=== PATIENT | female | born 1960 | race Caucasian/White ===

== ENCOUNTER 2018-12-11 11:58 | Emergency (ER) | payer MEDICARE, MEDICAID ==
[~2018-12-11] VITALS: Ht 162.6 cm; Wt 63.5 kg
--- NOTE | 2018-12-11 12:04 | ED General ---
General Stated Complaint: FALL; RIB/HEAD INJ History of Present Illness Date Seen by Provider: Dec 11, 2018 Time Seen by Provider: 12:01 Initial Comments Patient presents emergency department for evaluation of multiple areas of pain status post mechanical fall. 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 She is wheelchair-bound but can try and transition and put some weight on her left leg and her left ankle inverted. She then fell forward into the left and she hit her forehead in addition to her left anterior ribs and left hip and left ankle. She denies any vision changes confusion and difficulty speaking or new weakness numbness or tingling. She says that the left ribs is what hurts her the most. She is in no obvious distress with normal vital signs. Allergies and Home Medications Allergies Coded Allergies: codeine (Verified Allergy, Unknown, 12/11/18) Uncoded Allergies: IVP DYE (Allergy, Unknown, 12/11/18) PENICILLIN (Allergy, Unknown, 12/11/18) Patient Home Medication List Home Medication List Reviewed: Yes Review of Systems Review of Systems Constitutional: no symptoms reported EENTM: no symptoms reported Respiratory: no symptoms reported Cardiovascular: no symptoms reported Gastrointestinal: no symptoms reported Musculoskeletal: joint pain Skin: no symptoms reported Psychiatric/Neurological: Headache All Other Systems Reviewed Negative Unless Noted: Yes Physical Exam Vital Signs Vital Signs - First Documented Capillary Refill : Height, Weight, BMI Height: '" Weight: lbs. oz. kg; BMI Method: General Appearance: No Apparent Distress, WD/WN HEENT: PERRL/EOMI Neck: Normal Inspection, Non Tender Respiratory: Normal Breath Sounds, No Respiratory Distress, Other (left anterior rib pain to palpation with no subcutaneous air palpated) Cardiovascular: Regular Rate, Rhythm, Normal Peripheral Pulses Gastrointestinal: Non Tender, Soft Back: Normal Inspection, No Vertebral Tenderness Extremity: Normal Capillary Refill, Other (left lateral malleolus tenderness to palpation and in addition left hip tenderness to palpation.) Neurologic/Psychiatric: Alert, Oriented x3 Skin: Normal Color, Warm/Dry Progress/Results/Core Measures Suspected Sepsis SIRS Temperature: Pulse: Respiratory Rate: Blood Pressure / Mean: Results/Orders My Orders Orders - JUAN ROWE DO Ct Chest/Abdomen/Pelvis Wo (12/11/18 12:21) Ankle 3 View Left (12/11/18 12:21) Oxycodone/Apap 5/325mg Tablet (Percocet (12/11/18 12:30) Ibuprofen Tablet (Motrin Tablet) (12/11/18 12:30) Ct Head/Cervical Spine Wo (12/11/18 12:21) Medications Given in ED Current Medications Medications Dose Ordered Sig/Leelee Route Start Time Stop Time Status Last Admin Dose Admin Ibuprofen 600 mg ONCE ONCE PO 12/11/18 12:30 12/11/18 12:31 DC 12/11/18 12:33 600 MG Oxycodone/ Acetaminophen 1 tab ONCE ONCE PO 12/11/18 12:30 12/11/18 12:31 DC 12/11/18 12:33 1 TAB Vital Signs/I&O 12/11/18 12/11/18 12/11/18 12/11/18 12:03 12:03 12:33 12:33 Temp 98.6 98.6 98.6 98.6 Pulse 93 93 Resp 16 16 B/P (MAP) 97/56 (70) 97/56 (70) Pulse Ox 97 97 O2 Delivery Room Air Room Air Capillary Refill : Progress Note : Progress Note Patient suffered a mechanical fall several image her head and C-spine chest abdomen pelvis and left ankle and then reassess. She was given Percocet and ibuprofen for pain. Thankfully workup came back negative for no intracranial intrathoracic or intra- abdominal trauma and her left ankle x-ray was negative. It appears that she may have some nondisplaced rib fractures on the left anterior chest where she is hurting. Given she has normal vital signs and her pain is controlled and she is able to take deep breaths without difficulty I see no reason for inpatient observation. I told her this will be quite painful and she needs to take deep to avoid getting a pneumonia. Patient has oxycodone orally for pain but I told her NSAIDs may help her rib pain when anything else and recommended taking 6 her milligrams of ibuprofen every 6 hours. Patient aware and agreeable with plan for discharge and verbalized understanding of the need for short-term follow-up and strict ED return precautions discussed including worsening pain shortness of breath fevers or other general concerns. Departure Impression Primary Impression: Ribs, multiple fractures Qualified Codes: S22.42XA - Multiple fractures of ribs, left side, initial encounter for closed fracture Additional Impressions: CHI (closed head injury) Ankle sprain Contusion, hip Disposition: 01 HOME, SELF-CARE Condition: Stable Departure-Patient Inst. Patient Instructions: Rib Fractures in Adults Add. Discharge Instructions: Take 600mg of ibuprofen every 6 hours for pain. JUAN ROWE DO Dec 11, 2018 12:04
[2018-12-11] MEDS ORDERED: IBUPROFEN 600 MG (MOTRIN) TAB PO ONE (12:30)
[2018-12-11] MEDS ORDERED: oxyCODONE/APAP 5/325MG (PERCOCET 5) TABLET PO ONE (12:30)
--- NOTE | 2018-12-11 13:22 | Diagnostic Imaging Report ---
PROCEDURE: CT head and CT cervical spine without contrast. TECHNIQUE: Multiple contiguous axial images were obtained through the brain and cervical spine without the use of intravenous contrast. Sagittal and coronal reformations through the cervical spine were then performed. Auto Exposure Controls were utilized during the CT exam to meet ALARA standards for radiation dose reduction. INDICATION: Fall with head and neck injury. Left flaccid paralysis from prior stroke and weakness of the left lower extremity. COMPARISON: None. FINDINGS: CT HEAD: The ventricles and cortical sulci are mildly prominent, likely from generalized parenchymal volume loss. There is metal artifact in the bilateral cavernous regions, right greater than left, likely from prior coiling. There is a large area of encephalomalacia in the right frontoparietal region from prior MCA infarction. No acute intracranial hemorrhage is seen. There is no CT evidence of acute territorial ischemia. There is ex vacuo dilatation of the right lateral ventricle. The calvarium appears intact. Visualized paranasal sinuses are clear. CT CERVICAL SPINE: There is straightening of the cervical lordosis without spondylolisthesis. There are moderate degenerative changes at C3-4, C4-5, C5-6, and mild degenerative changes elsewhere. Vertebral body heights are preserved. No acute fracture is seen. Prevertebral soft tissues are unremarkable. No bony fragments or hyperdense fluid collections are seen in the spinal canal. The soft tissues about the cervical spine are otherwise unremarkable. There is mild emphysematous change in the lung apices. IMPRESSION: 1. No acute intracranial hemorrhage or CT evidence of acute territorial ischemia. 2. Sequelae from old right MCA infarct with coiling. 3. Degenerative changes in the cervical spine with no acute fracture seen. Dictated by: Dictated on workstation # [id number]
--- NOTE | 2018-12-11 13:22 | Diagnostic Imaging Report ---
INDICATION: Fall with left ankle pain. AP, oblique, and lateral views of the left ankle are obtained. There is diffuse osteopenia. There is no evidence of acute fracture or acute bony abnormality. IMPRESSION: Osteopenia. No acute fracture visualized. Dictated by: Dictated on workstation # [id number]
--- NOTE | 2018-12-11 13:34 | Diagnostic Imaging Report ---
PROCEDURE: CT chest, abdomen, and pelvis without contrast. TECHNIQUE: Multiple contiguous axial images were obtained through the chest, abdomen, and pelvis without the use of intravenous contrast. Auto Exposure Controls were utilized during the CT exam to meet ALARA standards for radiation dose reduction. INDICATION: Trauma. Fall in shower, chest and abdomen injury. History of left flaccid paralysis from prior stroke and weakness of the left lower extremity. COMPARISON: None. FINDINGS: CT CHEST: The heart is normal in size. There is no pericardial effusion. No mediastinal adenopathy is seen. No axillary adenopathy is seen. There are mild paraseptal emphysematous changes in the lung apices. There is dependent atelectasis. No airspace consolidation is seen. There is no pleural effusion or pneumothorax. No endobronchial lesions are seen. There is mild cortical irregularity at the left anterior second, third, and fourth ribs. No acute displaced fractures are seen. CT ABDOMEN/PELVIS: The liver appears normal. Cholecystectomy clips are noted. The spleen is normal. The pancreas appears normal. The adrenal glands are normal. There is mild stranding about the kidneys bilaterally, likely due to senescent changes. No obstructing calculi are seen. No acute solid organ injury is seen on this noncontrast exam. There are postsurgical changes at the proximal stomach. No bowel obstruction is seen. No free fluid or free air is seen. There is moderate stool in the sigmoid colon. The urinary bladder is mildly distended. There is internal fixation of the proximal left femur. No acute fracture is seen. IMPRESSION: 1. Mild cortical irregularity at the anterior left second through fourth ribs, could represent nondisplaced fractures if this is the area of tenderness. Otherwise, no displaced fractures are seen. 2. No acute thoracic or abdominopelvic abnormalities are seen. Dictated by: Dictated on workstation # [id number]
[2018-12-11 14:06] VITALS: BP 103/60
== END 2018-12-11 14:06 | disposition home or self-care (01) ==
LOC: ER FS 12:00
DX: S09.90XA Unspecified injury of head, initial encounter (principal); S22.42XA Multiple fractures of ribs, left side, initial encounter for closed fracture; S93.402A Sprain of unspecified ligament of left ankle, initial encounter; S70.02XA Contusion of left hip, initial encounter; Z86.73 Personal history of transient ischemic attack (TIA), and cerebral infarction without residual deficits; Z88.5 Allergy status to narcotic agent; Z88.0 Allergy status to penicillin; Z91.041 Radiographic dye allergy status; V00.811A Fall from moving wheelchair (powered), initial encounter
CPT/HCPCS: 70450; 71250; 72125; 73610; 74176

== ENCOUNTER 2019-03-14 13:18 | Emergency (ER) | payer MEDICARE, MEDICAID ==
[~2019-03-14] VITALS: Ht 162 cm; Wt 62.0 kg
--- NOTE | 2019-03-14 14:02 | ED Headache ---
General Chief Complaint: Head/Cervical Problems Stated Complaint: HEADACHE Source: patient Exam Limitations: no limitations History of Present Illness Date Seen by Provider: Mar 14, 2019 Time Seen by Provider: 13:59 Initial Comments Presents with posterior headache this started 1 hour prior to arrival. Patient with a history of cerebral aneurysm with "coils" from 2008. Subsequent left- sided weakness. No new neurologic deficits. Allergies and Home Medications Allergies Coded Allergies: codeine (Verified Allergy, Unknown, 12/11/18) Uncoded Allergies: IVP DYE (Allergy, Unknown, 12/11/18) PENICILLIN (Allergy, Unknown, 12/11/18) Patient Home Medication List Home Medication List Reviewed: Yes Review of Systems Review of Systems Constitutional: see HPI; No chills, No diaphoresis, No dizziness, No fever, No malaise, No weakness Eyes: Denies Blindness, Denies Blurred Vision, Denies Pain, Denies Photophobia Respiratory: no symptoms reported Cardiovascular: no symptoms reported Musculoskeletal: No joint swelling, No muscle pain, No muscle twitching, No muscle weakness; neck pain Skin: no symptoms reported Psychiatric/Neurological: See HPI; Denies Headache; Numbness (chronic left side), Pre-Existing Deficit Past Fbworaz-Qilkbh-Ksqxjd Hx Past Med/Social Hx: Reviewed Nursing Past Med/Soc Hx Patient Social History Type Used: Cigarettes 2nd Hand Smoke Exposure: No Recent Hopitalizations: No Immunizations Up To Date Date of Pneumonia Vaccine: Apr 19, 2018 Seasonal Allergies Seasonal Allergies: No Past Medical History Surgeries: Yes (Gastric bypass, EGD, Colonoscopy, Hip surgery) Bowel Surgery, Tonsillectomy Respiratory: No Cardiac: Yes Aneurysm, High Cholesterol Neurological: 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 oz. 63.712788yz; BMI Method:Stated General Appearance: WD/WN, no apparent distress HEENT: PERRL/EOMI, normal ENT inspection, TMs normal, pharynx normal Neck: non-tender, full range of motion, supple, normal inspection Cardiovascular: regular rate, rhythm, no edema Respiratory: lungs clear Gastrointestinal: normal bowel sounds, non tender Back: normal inspection, no CVA tenderness, no vertebral tenderness Extremities: normal range of motion, non-tender, normal inspection, normal capillary refill Psychiatric: alert, oriented x 3; No depressed affect, No disoriented x 3, No lethargic, No unresponsive Crainal Nerves: normal hearing Motor/Sensory: no motor deficit (nothing new), weak motor strength LUE, weak motor strength LLE Skin: normal color, warm/dry Lymphatic: no adenopathy Progress/Results/Core Measures Results/Orders My Orders Orders - ROSANNA CABAN DO Ct Head Wo (03/14/19 13:56) Acetaminophen Tablet (Tylenol Tablet) (03/14/19 14:45) Medications Given in ED Current Medications Medications Dose Ordered Sig/Leelee Route Start Time Stop Time Status Last Admin Dose Admin Acetaminophen 1,000 mg ONCE ONCE PO 03/14/19 14:45 03/14/19 14:46 DC 03/14/19 14:43 1,000 MG Vital Signs/I&O 03/14/19 03/14/19 13:45 15:18 Temp 36.7 37.0 Pulse 89 86 Resp 18 16 B/P (MAP) 102/66 (78) 114/95 (78) Pulse Ox 98 98 O2 Delivery Room Air Departure Impression Primary Impression: Headache Qualified Codes: R51 - Headache Additional Impression: History of cerebral aneurysm repair Disposition: 01 HOME, SELF-CARE (assisted living care) Condition: Stable Departure-Patient Inst. Referrals: ARNIE BERNARD MD (PCP/Family) Primary Care Physician Patient Instructions: Headache, Adult (DC) ROSANNA CABAN DO Mar 14, 2019 14:02
--- NOTE | 2019-03-14 14:32 | Diagnostic Imaging Report ---
PROCEDURE: CT head without contrast. TECHNIQUE: Multiple contiguous axial images were obtained through the brain without the use of intravenous contrast. Auto Exposure Controls were utilized during the CT exam to meet ALARA standards for radiation dose reduction. INDICATION: Headache. History of stroke. COMPARISON: CT head on 12/11/2018. FINDINGS: Chronic encephalomalacia is seen in the right MCA distribution representing prior infarct. Post-procedure aneurysm coiling is seen in the bilateral ICAs. No evidence of large acute territorial ischemia, mass, or hemorrhage. No midline shift or mass effect. There is ex vacuo dilation of the right lateral ventricle. The calvarium is intact. The visualized paranasal sinuses are clear. IMPRESSION: 1. No hemorrhage or focal intra-axial mass. No CT evidence of large acute territorial ischemia. 2. Stable findings of prior right MCA distribution infarct. Aneurysm coiling is seen in the bilateral ICAs. Dictated by: Dictated on workstation # [id number]
[2019-03-14] MEDS ORDERED: ACETAMINOPHEN 500 MG TAB (TYLENOL) PO ONE (14:45)
[2019-03-14 15:18] VITALS: BP 114/95
== END 2019-03-14 15:15 | disposition home or self-care (01) ==
LOC: EDUNIT# 13:18 → ER FS 13:19
DX: R51 Headache (principal); E78.00 Pure hypercholesterolemia, unspecified; G40.909 Epilepsy, unspecified, not intractable, without status epilepticus; F32.9 Major depressive disorder, single episode, unspecified; K21.9 Gastro-esophageal reflux disease without esophagitis; Z87.442 Personal history of urinary calculi; Z90.710 Acquired absence of both cervix and uterus; Z86.73 Personal history of transient ischemic attack (TIA), and cerebral infarction without residual deficits; Z86.79 Personal history of other diseases of the circulatory system; Z98.890 Other specified postprocedural states; Z88.5 Allergy status to narcotic agent; Z88.0 Allergy status to penicillin; Z91.041 Radiographic dye allergy status; Z90.89 Acquired absence of other organs
CPT/HCPCS: 70450

== ENCOUNTER → 2019-10-15 | Outpatient (CLI) | payer MEDICARE, MEDICAID ==
[2019-10-15 12:22] LABS: BILIRUBIN,URINE NEGATIVE (NEGATIVE); CLARITY,URINE CLEAR; COLOR,URINE YELLOW; GLUCOSE, URINE (UA) TRACE (NEGATIVE); KETONES,URINE TRACE (NEGATIVE); LEUKOCYTE ESTERASE ,URINE TRACE (NEGATIVE); NITRITE,URINE NEGATIVE (NEGATIVE); PH,URINE 5.5 (5-9); PROTEIN,URINE NEGATIVE (NEGATIVE)
[2019-10-15 12:23] LABS: BACTERIA,URINE LARGE /HPF; CALCIUM OXALATE CRYSTALS,UR MODERATE /LPF; SQUAMOUS EPITHELIAL CELL,UR 0-2 /HPF
== END ==
LOC: LAB FS 12:03
PROVIDERS: ATTEND Family Medicine
DX: R30.9 Painful micturition, unspecified (principal)
CPT/HCPCS: 81000; 87077; 87088

== ENCOUNTER → 2020-02-12 | Outpatient (CLI) | payer MEDICAID ==
[2020-02-12 12:29] LABS: BACTERIA,URINE FEW /HPF; BILIRUBIN,URINE NEGATIVE (NEGATIVE); CALCIUM OXALATE CRYSTALS,UR MODERATE /LPF; CLARITY,URINE CLEAR; COLOR,URINE YELLOW; GLUCOSE, URINE (UA) NEGATIVE (NEGATIVE); KETONES,URINE NEGATIVE (NEGATIVE); LEUKOCYTE ESTERASE ,URINE NEGATIVE (NEGATIVE); NITRITE,URINE POSITIVE (NEGATIVE); PH,URINE 6 (5-9); PROTEIN,URINE NEGATIVE (NEGATIVE)
== END ==
LOC: LAB FS 12:08
PROVIDERS: ATTEND Family Medicine
DX: R30.0 Dysuria (principal)
CPT/HCPCS: 81000; 87088

== ENCOUNTER 2020-02-20 08:16 | Emergency (ER) | payer MEDICARE, MEDICAID ==
[~2020-02-20] VITALS: Ht 162 cm; Wt 60.0 kg
--- NOTE | 2020-02-20 08:34 | ED Lower Extremity ---
General Chief Complaint: Lower Extremity Stated Complaint: FALL; LT HIP INJ Source: patient Exam Limitations: no limitations History of Present Illness Date Seen by Provider: Feb 20, 2020 Time Seen by Provider: 08:18 Initial Comments The patient is a pleasant 60-year-old female from longterm brought in by EMS for evaluation of a left hip injury. The patient had a previous stroke and is wheelchair bound and during a transfer today she fell to the floor. Her only complaint is left hip and lower back pain. She appears quite comfortable upon arrival and is moving the hip and her back without any apparent discomfort. She did not hit her head or lose consciousness. She is alert, calm, and appears to be in no distress at this time. Onset: just prior to arrival Severity: moderate Pain/Injury Location: left hip Method of Injury: fell Modifying Factors: Improves With Movement Allergies and Home Medications Allergies Coded Allergies: codeine (Verified Allergy, Unknown, 12/11/18) Uncoded Allergies: IVP DYE (Allergy, Unknown, 12/11/18) PENICILLIN (Allergy, Unknown, 12/11/18) Patient Home Medication List Home Medication List Reviewed: Yes Review of Systems Constitutional: no symptoms reported EENTM: no symptoms reported Respiratory: no symptoms reported Cardiovascular: no symptoms reported Gastrointestinal: no symptoms reported Genitourinary: no symptoms reported Musculoskeletal: back pain, joint pain (left hip) Skin: no symptoms reported Psychiatric/Neurological: No Symptoms Reported All Other Systems Reviewed Negative Unless Noted: Yes Past Mxsfvvz-Hdhmow-Kortxq Hx Past Med/Social Hx: Reviewed Nursing Past Med/Soc Hx Patient Social History Alcohol Use: Denies Use Recreational Drug Use: No Smoking Status: Current Everyday Smoker Type Used: Cigarettes 2nd Hand Smoke Exposure: No Recent Hopitalizations: No Physical Abuse: No Sexual Abuse: No Mistreated: No Fear: No Immunizations Up To Date Date of Pneumonia Vaccine: Apr 19, 2018 Seasonal Allergies Seasonal Allergies: No Past Medical History Surgeries: Yes (Gastric bypass, EGD, Colonoscopy, Hip surgery) Bowel Surgery, Tonsillectomy Respiratory: No Cardiac: Yes Aneurysm, High Cholesterol 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 oz. 63.623974pe; 23.00 BMI Method:Stated General Appearance: WD/WN, no apparent distress HEENT: PERRL/EOMI, normal ENT inspection Neck: non-tender, full range of motion, supple, normal inspection Cardiovascular: regular rate, rhythm, no edema, no murmur Respiratory: lungs clear, normal breath sounds, no respiratory distress, no accessory muscle use Gastrointestinal: normal bowel sounds, non tender, soft Back: normal inspection, no CVA tenderness, vertebral tenderness (L3-5) Hips: bilateral hip non-tender, bilateral hip normal inspection, bilateral hip normal range of motion, bilateral hip no evidence of injury, bilateral hip bone tenderness Legs: bilateral leg non-tender, bilateral leg normal inspection, bilateral leg normal range of motion, bilateral leg no evidence of injury Knees: bilateral knee non-tender, bilateral knee normal inspection, bilateral knee normal range of motion, bilateral knee no evidence of injury Ankles: bilateral ankle non-tender, bilateral ankle normal inspection, bilateral ankle normal range of motion, bilateral ankle no evidence of injury 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 The patient appears comfortable. Advised the patient to follow up with her PCP in the next 2-3 days and to return to the emergency Department immediately for new or worsening symptoms. The patient expresses verbal understanding and agreement with the plan and is stable for discharge. Diagnostic Imaging Diagonstic Imaging: Xray Comments [facility] [place] NAME: JENI BOLES [facility] REC#: [id number] PT STATUS: REG ER : 1960 PHYSICIAN: ASPEN LOPEZ DO ADMIT DATE: 02/20/20/ER FS Draft Date of Exam:02/20/20 PELVIS WITH LEFT HIP 2-3 VIEW INDICATION: Fall and left hip pain. TIME OF EXAM: 9:01 AM AP view of the pelvis and multiple views left hip were obtained. There is generalized demineralization present. There is intramedullary elle and compression screw transfixing the left hip. Left hip appears intact. Femoral acetabular alignment is normal bilaterally. Rami appear to be intact. IMPRESSION: Demineralization. There are postoperative changes to the left hip. No acute bony abnormality is detected. Dictated on workstation # [id number] Dict: 02/20/20919 Trans: 02/20/20921 CV [id number] Interpreted by: MALIHA GORE MD Electronically signed by: Departure Impression Primary Impression: Injury of left hip Additional Impression: Low back pain Disposition: HOME, SELF-CARE Condition: Stable Departure-Patient Inst. Decision time for Depature: 10:21 Referrals: ARNIE BERNARD MD (PCP/Family) Primary Care Physician Patient Instructions: Contusion (DC), Hip Pain (DC), Low Back Pain (DC) Add. Discharge Instructions: Follow-up with your doctor in the next 2-3 days. Take Tylenol or ibuprofen at home for pain relief is needed. Return to the emergency Department immediately for new or worsening symptoms. ASPEN LOPEZ DO Feb 20, 2020 08:34
--- NOTE | 2020-02-20 09:23 | Diagnostic Imaging Report ---
INDICATION: Fall and left hip pain. TIME OF EXAM: 9:01 AM AP view of the pelvis and multiple views left hip were obtained. There is generalized demineralization present. There is intramedullary elle and compression screw transfixing the left hip. Left hip appears intact. Femoral acetabular alignment is normal bilaterally. Rami appear to be intact. IMPRESSION: Demineralization. There are postoperative changes to the left hip. No acute bony abnormality is detected. Dictated by: Dictated on workstation # [id number]
[2020-02-20 10:30] VITALS: BP 132/66
== END 2020-02-20 10:40 | disposition home or self-care (01) ==
LOC: ER FS 08:16 → EDUNIT# 08:16 → ER FS 10:40
DX: S79.812A Other specified injuries of left hip, initial encounter (principal); M54.5 Low back pain; F17.210 Nicotine dependence, cigarettes, uncomplicated; Z88.5 Allergy status to narcotic agent; Z88.0 Allergy status to penicillin; Z91.041 Radiographic dye allergy status; W05.0XXA Fall from non-moving wheelchair, initial encounter
CPT/HCPCS: 72100; 73502

== ENCOUNTER 2020-12-29 07:39 | Emergency (ER) | payer MEDICARE, MEDICAID ==
[~2020-12-29] VITALS: Ht 162.6 cm; Wt 47.2 kg
[2020-12-29 07:40] VITALS: BP 104/63
--- NOTE | 2020-12-29 07:43 | ED Fall/Injury ---
General Stated Complaint: FALL; LT HIP/SHOULDER PAIN History of Present Illness Date Seen by Provider: Dec 29, 2020 Time Seen by Provider: 07:40 Initial Comments 60-year-old female presents with pain in her left hip and her left shoulder. Patient was transferring from the wheelchair in the restroom when she fell. She slightly bumped her head but has no pain or deficit there. She has known deficit in her left arm with inability to move it due to an aneurysm. Patient also has had a previous left hip fracture and repair. Patient complains of pain in the left shoulder along with pain in the left hip. She does have range of motion of her left leg. She has a small superficial abrasion/skin tear on her left hand otherwise denies any other injury. Allergies and Home Medications Allergies Coded Allergies: codeine (Verified Allergy, Unknown, 12/11/18) Uncoded Allergies: IVP DYE (Allergy, Unknown, 12/11/18) PENICILLIN (Allergy, Unknown, 12/11/18) Patient Home Medication List Home Medication List Reviewed: Yes Review of Systems Review of Systems Constitutional: No chills, No fever Eyes: No Symptoms Reported Ears, Nose, Mouth, Throat: no symptoms reported Respiratory: No cough, No short of breath Cardiovascular: No chest pain, No palpitations Gastrointestinal: No abdominal pain, No nausea, No vomiting Genitourinary: no symptoms reported Musculoskeletal: see HPI Skin: see HPI Psychiatric/Neurological: See HPI Past Eusmkic-Qlfsge-Apmwbh Hx Family Medical History Reviewed Nursing Family Hx Physical Exam Vital Signs Vital Signs - First Documented 12/29/20 07:40 Temp 36.3 Pulse 89 Resp 16 B/P (MAP) 104/63 (77) Pulse Ox 96 O2 Delivery Room Air Capillary Refill : Height, Weight, BMI Height: '" Weight: lbs. oz. kg; BMI Method: General Appearance: no apparent distress HEENT: PERRL/EOMI, pharynx normal Neck: full range of motion, supple Cardiovascular: normal peripheral pulses, regular rate, rhythm Respiratory: lungs clear, normal breath sounds Peripheral Pulses: 2+ Radial Pulses (R), 2+ Radial Pulses (L) Gastrointestinal: non tender, soft Back: no vertebral tenderness Extremities: other (Tenderness lateral aspect left shoulder, tenderness to left hip) Neurologic/Psychiatric: alert, normal mood/affect, oriented x 3, other (No acute changes, known left upper extremity deficit) Skin: other (Small abrasion/skin tear left hand) Progress/Results/Core Measures Results/Orders My Orders Orders - NATALIYA BALDERRAMA DO Shoulder 3 View Left (12/29/20 07:43) Pelvis With Left Hip 2-3 View (12/29/20 07:43) Vital Signs/I&O 12/29/20 07:40 Temp 36.3 Pulse 89 Resp 16 B/P (MAP) 104/63 (77) Pulse Ox 96 O2 Delivery Room Air Progress Progress Note : Progress Note Patient with no acute fractures noted on shoulder x-ray. Patient with pubic rami fracture on pelvic x-ray. Patient is already wheelchair bound due to previous deficit from the stroke as well as pain medication. At this time she [facility] since [facility] is supportive with pain management. She can follow-up with orthopedic surgery on outpatient basis or her primary care provider as needed. Patient stable and discharged home Diagnostic Imaging Diagonstic Imaging: Xray Plain Films/CT/US/NM/MRI: other Comments Date of Exam:12/29/20 SHOULDER 3 VIEW LEFT INDICATION: Fall with left shoulder pain. COMPARISON: None available. TECHNIQUE: 3 views left shoulder. FINDINGS: Diffuse osseous demineralization is present which limits assessment for nondisplaced fractures. Allowing for this, there is no displaced fracture. Glenohumeral and acromioclavicular joints are normal alignment. Mild osteoarthritis of both of the glenohumeral and acromioclavicular joints. Subacromial space is preserved. IMPRESSION: 1. No acute displaced fracture or dislocation. 2. Diffuse osseous demineralization limits assessment for nondisplaced fracture. Reviewed: Reviewed by Me, Reviewed/Discussed Diagonstic Imaging: Xray Plain Films/CT/US/NM/MRI: pelvis, hip Comments Date of Exam:12/29/20 PELVIS WITH LEFT HIP 2-3 VIEW INDICATION: Left hip pain after fall. COMPARISON: 02/20/2020. TECHNIQUE: AP pelvis with AP and frog-leg lateral views of the left hip. FINDINGS: Diffuse osseous demineralization is present which limits assessment of nondisplaced fracture. There appears to be some irregularity along the left pubic body and left inferior pubic ramus raising the possibility nondisplaced acute fracture. Left proximal femur gamma nail from fixation of old intertrochanteric fracture. No dislocation of either hip. Moderate osteoarthritis of right hip. IMPRESSION: 1. Probable acute fractures of the left pubic body and inferior pubic ramus. Reviewed: Reviewed by Me, Reviewed/Discussed Departure Impression Primary Impression: Fracture of pubic ramus Qualified Codes: S32.592A - Other specified fracture of left pubis, initial encounter for closed fracture Additional Impressions: Contusion of shoulder, left Qualified Codes: S40.012A - Contusion of left shoulder, initial encounter Fall from wheelchair Qualified Codes: W05.0XXA - Fall from non-moving wheelchair, initial encounter Disposition: HOME, SELF-CARE Condition: Stable Departure-Patient Inst. Patient Instructions: Contusion (DC), Pelvic Fracture (DC) Add. Discharge Instructions: Continue current care with wheelchair and pain medication Follow-up with your primary care provider or orthopedic surgeon later this week for recheck of today's symptoms NATALIYA BALDERRAMA DO Dec 29, 2020 07:43
--- NOTE | 2020-12-29 08:22 | Diagnostic Imaging Report ---
INDICATION: Fall with left shoulder pain. COMPARISON: None available. TECHNIQUE: 3 views left shoulder. FINDINGS: Diffuse osseous demineralization is present which limits assessment for nondisplaced fractures. Allowing for this, there is no displaced fracture. Glenohumeral and acromioclavicular joints are normal alignment. Mild osteoarthritis of both of the glenohumeral and acromioclavicular joints. Subacromial space is preserved. IMPRESSION: 1. No acute displaced fracture or dislocation. 2. Diffuse osseous demineralization limits assessment for nondisplaced fracture. Dictated by: Dictated on workstation # [id number]
--- NOTE | 2020-12-29 08:30 | Diagnostic Imaging Report ---
INDICATION: Left hip pain after fall. COMPARISON: 02/20/2020. TECHNIQUE: AP pelvis with AP and frog-leg lateral views of the left hip. FINDINGS: Diffuse osseous demineralization is present which limits assessment of nondisplaced fracture. There appears to be some irregularity along the left pubic body and left inferior pubic ramus raising the possibility nondisplaced acute fracture. Left proximal femur gamma nail from fixation of old intertrochanteric fracture. No dislocation of either hip. Moderate osteoarthritis of right hip. IMPRESSION: 1. Probable acute fractures of the left pubic body and inferior pubic ramus. Dictated by: Dictated on workstation # [id number]
[2020-12-29] MEDS ORDERED: oxyCODONE/APAP 5/325MG (PERCOCET 5) TABLET PO ONE (09:45)
== END 2020-12-29 09:41 | disposition home or self-care (01) ==
LOC: EDUNIT# 07:39 → ER FS 07:40
DX: S32.592A Other specified fracture of left pubis, initial encounter for closed fracture (principal); S40.012A Contusion of left shoulder, initial encounter; I69.30 Unspecified sequelae of cerebral infarction; Z99.3 Dependence on wheelchair; Z87.81 Personal history of (healed) traumatic fracture; W05.0XXA Fall from non-moving wheelchair, initial encounter; W22.8XXA Striking against or struck by other objects, initial encounter; Y92.89 Other specified places as the place of occurrence of the external cause
CPT/HCPCS: 73030; 73502

== ENCOUNTER 2020-12-31 10:44 | Emergency (ER) | payer MEDICARE, MEDICAID ==
--- NOTE | 2020-12-31 11:09 | ED Upper Extremity ---
General Chief Complaint: Upper Extremity Stated Complaint: RT HIP/LT SHOULDER/BACK PAIN History of Present Illness Date Seen by Provider: Dec 31, 2020 Time Seen by Provider: 11:00 Initial Comments 60-year-old female presents with left shoulder pain. Recently seen on December 29 after a fall with left hip and left shoulder pain and x-rays for the shoulder that were normal, however did have possibility of left pubic and inferior ramus fractures. Patient with complicated past medical history significant for an aneurysm with subsequent left sided debility and now wheelchair bound. Lives in an assisted living setting. This morning her caregiver felt a pop in her left arm when assisting her moving from her chair. Allergies and Home Medications Allergies Coded Allergies: codeine (Verified Allergy, Unknown, 12/11/18) Uncoded Allergies: IVP DYE (Allergy, Unknown, 12/11/18) PENICILLIN (Allergy, Unknown, 12/11/18) Home Medications Hydrocodone/Acetaminophen 1 Each Tablet, 1 EACH PO Q4H Prescribed by: ROSANNA CABAN on 12/31/20 7369 Patient Home Medication List Home Medication List Reviewed: Yes Review of Systems Constitutional: malaise (chronic pain) Respiratory: No cough, No short of breath Cardiovascular: No chest pain, No edema, No palpitations Gastrointestinal: No abdominal pain, No diarrhea, No vomiting Musculoskeletal: back pain, joint pain (left hip and left shoulder), muscle pain Skin: No change in color, No rash Psychiatric/Neurological: Denies Headache; Weakness (baseline left sided weakness) Past Cymzdzw-Xpizli-Bjhnld Hx Patient Social History Tobacco Use?: No Seasonal Allergies Seasonal Allergies: No Past Medical History Surgeries: Yes (Gastric bypass, EGD, Colonoscopy, Hip surgery) Bowel Surgery, Tonsillectomy Respiratory: No Cardiac: Yes Aneurysm, High Cholesterol Neurological: 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, Stroke P[employer] History: Hysterectomy Genitourinary: Yes Kidney Stones Gastrointestinal: Yes Gastroesophageal Reflux Musculoskeletal: Yes (Left Hip fracture, left humerus, ) Fractures Endocrine: No HEENT: No Cancer: No Psychosocial: Yes Depression Integumentary: No Blood Disorders: No Physical Exam Vital Signs Vital Signs - First Documented 12/31/20 12/31/20 10:48 13:35 Temp 36.6 Pulse 99 Resp 18 B/P (MAP) 107/66 (80) Pulse Ox 92 O2 Delivery Room Air O2 Flow Rate 2.00 Capillary Refill : Height, Weight, BMI Height: 5'4.00" Weight: 140lbs. oz. [id number]; 17.00 BMI Method:Stated General Appearance: WD/WN, no apparent distress Neck: non-tender, supple Cardiovascular: regular rate, rhythm, no edema, no JVD Respiratory: chest non-tender, lungs clear, normal breath sounds, no respiratory distress, no accessory muscle use Gastrointestinal: normal bowel sounds, non tender, soft Back: normal inspection, no CVA tenderness, no vertebral tenderness Shoulder: No normal ROM; asymmetry (left shoulder dislocation- anterior), bone tenderness; No deformity; limited ROM, pain, soft tissue tenderness Elbow/Forearm: normal inspection, non-tender, no evidence of injury Wrist: Yes normal inspection, Yes non-tender, Yes no evidence of injury Hand: normal inspection, non-tender, no evidence of injury Neurologic/Tendon: normal sensation, responds to pain Neurologic/Psychiatric: alert, normal mood/affect Skin: normal color, warm/dry Procedures/Interventions Patient Education: Explained Benefits, Explained Risks, Pt. Ack. Understanding Agreement on procedure with pt: Yes Breath Sounds per Auscultation: Clear Heart Sounds per Auscultation: Regular Airway Exam: Mouth opens >2 fingers, Visulation of Uvula Total Time spent in CS 2 easy reduction w minimal sedation. severe laxity of shoulder due to muscle wasting / atrophy. Splinting and Joint Reduction : Pre-Proc Neuro Vasc Exam: normal Post-Proc Neuro Vasc Exam: normal Joint Reduction Site: shoulder (L) Pre-Procedure NV Exam: Yes Arm Sling: Large Progress/Results/Core Measures Results/Orders My Orders Orders - ROSANNA CABAN DO Shoulder 3 View Left (12/31/20 11:03) Fentanyl Inj (Sublimaze Injection) (12/31/20 13:30) Midazolam Injection (Versed Injection) (12/31/20 13:30) Fentanyl Inj (Sublimaze Injection) (12/31/20 16:30) Midazolam Injection (Versed Injection) (12/31/20 16:30) Medications Given in ED Current Medications Medications Dose Ordered Sig/Leelee Route Start Time Stop Time Status Last Admin Dose Admin Fentanyl Citrate 25 mcg ONCE ONCE IVP 12/31/20 16:30 12/31/20 16:31 DC 12/31/20 13:42 25 MCG Midazolam HCl 1 mg ONCE ONCE IVP 12/31/20 16:30 12/31/20 16:31 DC 12/31/20 13:43 1 MG Vital Signs/I&O 12/31/20 12/31/20 12/31/20 12/31/20 10:48 13:35 13:37 13:40 Temp 36.6 36.6 Pulse 99 101 101 Resp 18 B/P (MAP) 107/66 (80) 132/98 103/53 Pulse Ox 92 96 96 O2 Delivery Room Air Nasal Cannula Room Air Nasal Cannula O2 Flow Rate 2.00 2.00 2.00 12/31/20 12/31/20 12/31/20 12/31/20 13:45 13:50 13:55 14:00 Pulse 102 104 106 105 Resp 15 13 16 17 15 15 16 17 B/P (MAP) 105/60 108/69 96/59 101/60 Pulse Ox 92 92 96 95 O2 Delivery Nasal Cannula Nasal Cannula O2 Flow Rate 2.00 2.00 12/31/20 12/31/20 12/31/20 14:05 14:20 14:20 Temp 36.4 36.4 Pulse 108 101 101 Resp 18 18 18 18 18 B/P (MAP) 105/76 106/71 Pulse Ox 96 94 94 O2 Delivery Room Air Progress Progress Note : Progress Note called Dr lopez @ 4500 for consultation regarding shoulder dislocation w proximal humeral fx.....he advises I reduce the dislocation and put her in a sling. Diagnostic Imaging Diagonstic Imaging: Xray Comments Date of Exam:12/31/20 SHOULDER 3 VIEW LEFT Indication: Lifting injury. Left shoulder pain 4 views of left shoulder shows anterior/inferior dislocation of the glenohumeral joint no fracture of the humeral head seen. There is an oblique fracture of the proximal shaft of the humerus which could be evaluated better with dedicated humeral films. AC joint is intact. IMPRESSION: There is a change from 12/29/2020 study there is now inferior dislocation as well as a fracture of the shaft of the humerus. Dictated by: Dictated on workstation # [id number] Dict: 12/31/20 1135 Trans: 12/31/20 1141 [facility] [id number] Interpreted by: ASPEN LYNN MD Electronically signed by: ASPEN LYNN MD 12/31/20 1141 Departure Impression Primary Impression: Dislocation of shoulder, left, closed Qualified Codes: S43.005A - Unspecified dislocation of left shoulder joint, initial encounter Additional Impression: Proximal humeral fracture Qualified Codes: S42.292A - Other displaced fracture of upper end of left humerus, initial encounter for closed fracture Disposition: 01 HOME, SELF-CARE Condition: Improved Departure-Patient Inst. Decision time for Depature: 13:47 Referrals: ARNIE BERNARD MD (PCP/Family) Primary Care Physician Patient Instructions: How to Use a Shoulder Sling, Shoulder Dislocation (DC), Upper Arm Fracture ED Add. Discharge Instructions: See Dr Bernard for follow up care in 1 week. All discharge instructions reviewed with patient and/or family. Voiced understanding. Scripts Hydrocodone/Acetaminophen (Hydrocodone-Acetamin 5-325 mg) 1 Each Tablet 1 EACH PO Q4H for Abdominal Pain, #20 TAB Prov: ROSANNA CABAN DO 12/31/20 ROSANNA CABAN DO Dec 31, 2020 11:09
--- NOTE | 2020-12-31 11:40 | Diagnostic Imaging Report ---
Indication: Lifting injury. Left shoulder pain 4 views of left shoulder shows anterior/inferior dislocation of the glenohumeral joint no fracture of the humeral head seen. There is an oblique fracture of the proximal shaft of the humerus which could be evaluated better with dedicated humeral films. AC joint is intact. IMPRESSION: There is a change from 12/29/2020 study there is now inferior dislocation as well as a fracture of the shaft of the humerus. Dictated by: Dictated on workstation # [id number]
[2020-12-31] MEDS ORDERED: MIDAZOLAM 5 MG/5 ML (VERSED) VIAL IVP ONE (13:30)
[2020-12-31] MEDS ORDERED: fentaNYL INJ 100 MCG/2 ML AMP IVP ONE ×2 (13:30→16:30)
[2020-12-31] MEDS ORDERED: ACHD5005 PO (13:56)
[2020-12-31 14:20] VITALS: BP 106/71
[2020-12-31] MEDS ORDERED: MIDAZOLAM 2 MG/2 ML (VERSED) VIAL IVP ONE (16:30)
== END 2020-12-31 14:20 | disposition home or self-care (01) ==
LOC: EDUNIT# 10:44 → ER FS 10:46
DX: S42.332A Displaced oblique fracture of shaft of humerus, left arm, initial encounter for closed fracture (principal); S43.005A Unspecified dislocation of left shoulder joint, initial encounter; Z86.73 Personal history of transient ischemic attack (TIA), and cerebral infarction without residual deficits; W19.XXXA Unspecified fall, initial encounter
CPT/HCPCS: 73030

== ENCOUNTER 2021-01-05 10:28 | Emergency (ER) | payer MEDICARE, MEDICAID ==
[~2021-01-05 10:28] MED LIST: ACHD5005 PO
[2021-01-05 11:04] LABS: BASOPHILS % (AUTO) 1 % (0-10); EOSINOPHILS % (AUTO) 1 % (0-10); HEMATOCRIT 35 % (35-52); HEMOGLOBIN 11.2 G/DL (11.5-16.0); LYMPHOCYTES % (AUTO) 17 % (12-44); MEAN CORPUSCULAR HEMOGLOBIN 31 PG (25-34); MEAN CORPUSCULAR HGB CONC 32 G/DL (32-36); MEAN CORPUSCULAR VOLUME 98 FL (80-99); MEAN PLATELET VOLUME 9.5 FL (7.4-10.4); MONOCYTES % (AUTO) 8 % (0-12); NEUTROPHILS # (AUTO) 6.2 X 10^3 (1.8-7.8); NEUTROPHILS % (AUTO) 74 % (42-75); PLATELET COUNT 418 10^3/uL (130-400); WHITE BLOOD COUNT 8.4 10^3/uL (4.3-11.0)
[2021-01-05 11:05] LABS: BASOPHILS # (AUTO) 0.1 10^3/uL (0.0-0.1); EOSINOPHILS # (AUTO) 0.1 10^3/uL (0.0-0.3); LYMPHOCYTES # (AUTO) 1.4 X 10^3 (1.0-4.0); MONOCYTES # (AUTO) 0.7 X 10^3 (0.0-1.0)
--- NOTE | 2021-01-05 11:06 | Diagnostic Imaging Report ---
CLINICAL INDICATION: Patient with chest pain. EXAM: Portable chest x-ray upright view. COMPARISONS: None. FINDINGS: Lungs/pleura: Lungs are clear. There is no pneumothorax. There is no pleural effusion. Mediastinum: Unremarkable. Pulmonary vasculature: Unremarkable. Heart: Unremarkable. Bones/extrathoracic soft tissue: There is right curvature of the lumbar spine. IMPRESSION: There is no radiographic evidence of acute cardiopulmonary process. Dictated by: Dictated on workstation # [id number]
[2021-01-05 11:17] LABS: ALKALINE PHOSPHATASE 131 U/L (40-136); BILIRUBIN,TOTAL 0.3 MG/DL (0.1-1.0); BUN/CREATININE RATIO 28; CALCIUM 9.1 MG/DL (8.5-10.1); CARBON DIOXIDE 23 MMOL/L (21-32); CHLORIDE 105 MMOL/L (98-107); CREATININE SERUM 0.79 MG/DL (0.60-1.30); GFR ESTIMATED 74; GLUCOSE 129 MG/DL (70-105); POTASSIUM 4.1 MMOL/L (3.6-5.0); SODIUM 138 MMOL/L (135-145)
[2021-01-05 11:18] LABS: ALANINE AMINOTRANSFERASE 13 U/L (0-55); ALBUMIN 3.3 GM/DL (3.2-4.5); TOTAL PROTEIN 6.1 GM/DL (6.4-8.2)
--- NOTE | 2021-01-05 11:46 | ED Chest Pain ---
General Chief Complaint: Chest Pain Stated Complaint: CHEST PAIN Nursing Triage Note: CHEST PAIN THAT STARTED PRIOR TO ARRIVAL. THE NURSE AT THE ID STATED THAT THE PT SAYS SHE JUST WANT TO BE ADMITTED AND BE ON A "PAIN MEDICINE DRIP". SHE HAS CHRONIC PAIN AND A NEW LEFT SHOULDER FX FROM THE PAST WEEK. 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 Pain is mod erate to severe nonradiating nonmigratory. It has since resolved. Patient denies nausea shortness of breath nausea vomiting or sweats. Denies abdominal pain back pain. Denies extremity weakness or loss of sensation. No headache or neck pain. No other acute symptoms or complaints. No history of coronary disease. Timing/Duration: 1 hour Severity/Quality: moderate, tearing Location: substernal, other Radiation: no radiation, other Activities at Onset: none, other Prior CP/Workup: no prior chest pain, other Modifying Factors: improves with other Associated Symptoms: shortness of breath Allergies and Home Medications Allergies Coded Allergies: Iodinated Contrast Media (Unverified Allergy, Unknown, 01/05/21) Penicillins (Unverified Allergy, Unknown, 01/05/21) codeine (Verified Allergy, Unknown, 12/11/18) Home Medications Hydrocodone/Acetaminophen 1 Each Tablet, 1 EACH PO Q4H Prescribed by: ROSANNA CABAN on 12/31/20 1357 Patient Home Medication List Home Medication List Reviewed: Yes Review of Systems Review of Systems Constitutional: see HPI EENTM: See HPI Respiratory: See HPI Cardiovascular: See HPI Gastrointestinal: See HPI Genitourinary: See HPI Musculoskeletal: see HPI Skin: see HPI Psychiatric/Neurological: See HPI Endocrine: See HPI Hematologic/Lymphatic: See HPI All Other Systems Reviewed Negative Unless Noted: Yes Past Uhohhzj-Jrvmll-Yglqjk Hx Patient Social History Tobacco Use?: No Use of E-Cig and/or Vaping dev: No Substance use?: No Alcohol Use?: No Pt feels they are or have been: No Seasonal Allergies Seasonal Allergies: No Past Medical History Surgery/Hospitalization HX: L shoulder surgery Surgeries: Yes (Gastric bypass, EGD, Colonoscopy, Hip surgery) Bowel Surgery, Tonsillectomy Respiratory: No Cardiac: Yes Aneurysm, High Cholesterol 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 oz. 63.598411dg; 17.00 BMI Method:Stated General Appearance: No Apparent Distress, WD/WN, Anxious, Moderate Distress HEENT: PERRL/EOMI, Normal ENT Inspection, Pharynx Normal, Other Neck: Normal Inspection, Non Tender, Supple, Other Respiratory: Lungs Clear, Normal Breath Sounds, Other Cardiovascular: Regular Rate, Rhythm, No Edema (Left hemiparalysis), Other Gastrointestinal: Non Tender, Soft Neurologic/Psychiatric: Alert, Motor Weakness Focused Exam Sepsis Stage: Ruled Out Procedures/Interventions Patient Education: Explained Benefits, Explained Risks, Pt. Ack. Understanding Breath Sounds per Auscultation: Clear Heart Sounds per Auscultation: Regular Airway Exam: Mouth opens >2 fingers, Visulation of Uvula Progress/Results/Core Measures Results/Orders Lab Results Laboratory Tests Test 01/05/21 10:42 01/05/21 11:24 01/05/21 13:23 Range/Units White Blood Count 8.4 4.3-11.0 10^3/uL Red Blood Count 3.58 L 4.35-5.85 10^6/uL Hemoglobin 11.2 L 11.5-16.0 G/DL Hematocrit 35 35-52 % Mean Corpuscular Volume 98 80-99 FL Mean Corpuscular Hemoglobin 31 25-34 PG Mean Corpuscular Hemoglobin Concent 32 32-36 G/DL Red Cell Distribution Width 12.1 10.0-14.5 % Platelet Count 418 H 130-400 10^3/uL Mean Platelet Volume 9.5 7.4-10.4 FL Immature Granulocyte % (Auto) 0 % Neutrophils (%) (Auto) 74 42-75 % Lymphocytes (%) (Auto) 17 12-44 % Monocytes (%) (Auto) 8 0-12 % Eosinophils (%) (Auto) 1 0-10 % Basophils (%) (Auto) 1 0-10 % Neutrophils # (Auto) 6.2 1.8-7.8 X 10^3 Lymphocytes # (Auto) 1.4 1.0-4.0 X 10^3 Monocytes # (Auto) 0.7 0.0-1.0 X 10^3 Eosinophils # (Auto) 0.1 0.0-0.3 10^3/uL Basophils # (Auto) 0.1 0.0-0.1 10^3/uL Immature Granulocyte # (Auto) 0.0 0.0-0.1 10^3/uL D-Dimer 7.12 H 0.00-0.49 UG/ML Sodium Level 138 135-145 MMOL/L Potassium Level 4.1 3.6-5.0 MMOL/L Chloride Level 105 98-107 MMOL/L Carbon Dioxide Level 23 21-32 MMOL/L Anion Gap 10 5-14 MMOL/L Blood Urea Nitrogen 22 H 7-18 MG/DL Creatinine 0.79 0.60-1.30 MG/DL Estimat Glomerular Filtration Rate 74 BUN/Creatinine Ratio 28 Glucose Level 129 H 70-105 MG/DL Calcium Level 9.1 8.5-10.1 MG/DL Corrected Calcium 9.7 8.5-10.1 MG/DL Total Bilirubin 0.3 0.1-1.0 MG/DL Aspartate Amino Transf (AST/SGOT) 18 5-34 U/L Alanine Aminotransferase (ALT/SGPT) 13 0-55 U/L Alkaline Phosphatase 131 40-136 U/L Troponin I < 0.30 < 0.30 <0.30 NG/ML Total Protein 6.1 L 6.4-8.2 GM/DL Albumin 3.3 3.2-4.5 GM/DL Urine Color DARK YELLOW Urine Clarity CLOUDY H Urine pH 6.0 5-9 Urine Specific [place] >=1.030 1.016-1.022 Urine Protein NEGATIVE NEGATIVE Urine Glucose (UA) NEGATIVE NEGATIVE Urine Ketones 1+ H NEGATIVE Urine Nitrite NEGATIVE NEGATIVE Urine Bilirubin 1+ H NEGATIVE Urine Urobilinogen 1.0 < = 1.0 MG/DL Urine Leukocyte Esterase NEGATIVE NEGATIVE Urine RBC (Auto) NEGATIVE NEGATIVE Urine RBC 2-5 H /HPF Urine WBC 10-25 H /HPF Urine Squamous Epithelial Cells 2-5 /HPF Urine Crystals PRESENT H /LPF Urine Calcium Oxalate Crystals MODERATE H /LPF Urine Bacteria LARGE H /HPF Urine Casts NONE /LPF Urine Mucus NEGATIVE /LPF Urine Culture Indicated YES My Orders Orders - YAN CASAS DO Cbc With Automated Diff (01/05/21 10:45) Comprehensive Metabolic Panel (01/05/21 10:45) Troponin I Fs (01/05/21 10:45) Ekg-Prn For Chest Pain Or Rhyt (01/05/21 10:45) Chest 1 View Ap/Pa Only (01/05/21 10:45) Fibrin Degradation Products (01/05/21 11:15) Urinalysis (01/05/21 11:30) Ct Angio Chst/Abd/Pelv W Wo (01/05/21 11:42) Urine Culture (01/05/21 11:24) Iohexol Injection (Omnipaque 350 Mg/Ml 1 (01/05/21 12:00) Received Contrast (Hold Metformin- Contr (01/05/21 12:00) Sodium Chloride Flush (Catheter Flush Sy (01/05/21 12:00) Ns (Ivpb) (Sodium Chloride 0.9% Ivpb Bag (01/05/21 12:00) Troponin I Fs (01/05/21 13:16) Medications Given in ED Current Medications Medications Dose Ordered Sig/Leelee Route Start Time Stop Time Status Last Admin Dose Admin Iohexol 100 ml ONCE ONCE IV 01/05/21 12:00 01/05/21 12:09 DC 01/05/21 12:23 100 ML Sodium Chloride 10 ml NEEDED PRN IV 01/05/21 12:00 01/05/21 12:23 10 ML Sodium Chloride 100 ml ONCE ONCE IV 01/05/21 12:00 01/05/21 12:09 DC 01/05/21 12:23 100 ML Vital Signs/I&O 01/05/21 01/05/21 10:30 10:30 Temp 36.7 Pulse 95 Resp 14 B/P (MAP) 114/65 (81) Pulse Ox 98 O2 Delivery Room Air Room Air Blood Pressure Mean: 81 Departure Communication (Admissions) EKG: Sinus rhythm, right 99, no acute ST-T wave changes, normal OK, QRS, QTc intervals Chest x-ray: No acute cardiopulmonary disease. CTA chest: No dissection, or acute coronary disease. Atypical chest pain nonexertional resolved prior to ED arrival. Negative EKG and troponin x2. Significant elevation in D-dimer. Negative CTA for dissection/pulmonary embolus. No findings of Covid disease on CT . Recommendations are for watchful waiting and following up with PCP. Impression Primary Impression: Chest pain Disposition: 01 HOME, SELF-CARE Condition: Stable Departure-Patient Inst. Decision time for Depature: 14:33 Referrals: ARNIE BERNARD MD (PCP/Family) Primary Care Physician Patient Instructions: Chest Pain Add. Discharge Instructions: You were evaluated in the ED for chest pain. EKG lab and imaging studies were performed and are nondiagnostic. The exact cause of your symptoms has not been determined. Please follow-up with your PCP in 2 to 3 days for reevaluation. Return to the ED if new or worsening symptoms All discharge instructions reviewed with patient and/or family. Voiced understanding. YAN CASAS DO Jan 05, 2021 11:46
[2021-01-05 11:48] LABS: CLARITY,URINE CLOUDY; COLOR,URINE DARK YELLOW; GLUCOSE, URINE (UA) NEGATIVE (NEGATIVE); KETONES,URINE 1+ (NEGATIVE); PROTEIN,URINE NEGATIVE (NEGATIVE)
[2021-01-05 11:49] LABS: BACTERIA,URINE LARGE /HPF; BILIRUBIN,URINE 1+ (NEGATIVE); CALCIUM OXALATE CRYSTALS,UR MODERATE /LPF; LEUKOCYTE ESTERASE ,URINE NEGATIVE (NEGATIVE); NITRITE,URINE NEGATIVE (NEGATIVE)
[2021-01-05] MEDS ORDERED: NS 100 ML (IVPB) BAG IV ONE (12:00)
[2021-01-05] MEDS ORDERED: CATHETER FLUSH 10 ML SYR IV PRN (12:00)
[2021-01-05] MEDS ORDERED: HOLD METFORMIN - RECEIVED CONTRAST 20 ML VIAL IV SCH (12:00)
[2021-01-05] MEDS ORDERED: IOHEXOL 350 MG/ML 100 ML (OMNIPAQUE 350) VIAL IV ONE (12:00)
--- NOTE | 2021-01-05 13:04 | Diagnostic Imaging Report ---
INDICATION: Chest pain and abdominal pain, clinical suspicion for dissection. TECHNIQUE: Non contrast-enhanced helical images were obtained through the chest, abdomen and pelvis. Contrast-enhanced thin section helical images were obtained through the chest, abdomen and pelvis with intravenous contrast timed for the optimal opacification of the arterial structures per departmental CTA protocol. Post-processing, retro reconstructions and interpretation of angiographic images of the vessels was performed. 3D MIP reconstructions were performed and reviewed. Auto Exposure Controls were utilized during the CT exam to meet ALARA standards for radiation dose reduction. Comparison made to previous study of 12/11/2018, without contrast. CTA chest findings: There are no enlarged mediastinal or hilar nodes. There are no enlarged axillary nodes or chest wall lesions. There is no pleural or pericardial fluid. Lung parenchymal windows demonstrate no pulmonary parenchymal infiltrates or masses. There is some linear scarring or atelectasis in the right lung base. The thoracic aorta shows no evidence of aneurysm or dissection. The great vessel origins are patent and without stenosis. The pulmonary parenchymal vessels are well-opacified with no CT evidence of pulmonary emboli. CT abdomen and pelvis findings: The liver shows no focal lesion. Patient has had prior cholecystectomy. Spleen, adrenals, and pancreas are normal. Kidneys bilaterally show no focal lesion. There is slight atrophy of the left kidney relative to the right. There is no retroperitoneal mass or adenopathy. There is no ascites or abnormal fluid collection. Visualized bowel loops including the appendix appear unremarkable. There are old healed bilateral inferior pubic ramus fractures. There is osteopenia with diffuse degenerative change of the lumbar spine. CTA images demonstrate the abdominal aorta to be patent and without evidence of dissection. 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 There is no definite plaque formation. The renal arteries are patent on both sides and without stenosis. The infrarenal aorta is normal in caliber. The inferior mesenteric artery is patent. The common iliac arteries and internal iliac arteries and external iliac arteries are patent. The common femoral arteries are patent. IMPRESSION: CTA chest shows no evidence of aortic dissection or aneurysm or pulmonary emboli. There is some minimal linear scarring or atelectasis in left lung base. There is no acute abnormality in the chest. CT abdomen and pelvis demonstrates no evidence of abdominal aortic aneurysm or dissection. There is no significant plaque formation. 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 There is no acute abnormality visualized in the abdomen or pelvis. Dictated by: Dictated on workstation # [id number]
[2021-01-05 14:28] VITALS: BP 116/68
== END 2021-01-05 14:28 | disposition home or self-care (01) ==
LOC: EDUNIT# 10:28 → ER FS 10:29
DX: R07.2 Precordial pain (principal); Z88.5 Allergy status to narcotic agent
CPT/HCPCS: 36415; 71045; 71275; 74174; 80053; 81000; 84484; 85025; 85379; 87077; 87088; 87186; 93005

== ENCOUNTER 2021-01-13 07:38 | Emergency (ER) | payer MEDICARE, MEDICAID ==
[~2021-01-13] VITALS: Ht 154 cm; Wt 65.0 kg
--- NOTE | 2021-01-13 08:04 | ED GU-Female ---
General Stated Complaint: SUPRAPUBIC PAIN Source: patient Exam Limitations: no limitations History of Present Illness Date Seen by Provider: Jan 13, 2021 Time Seen by Provider: 07:47 Initial Comments Here with report of suprapubic pain that started this morning. Patient states it feels like when she has a kidney stone. She is quite debilitated and is [facility]. She needs assistance for all transfers. Denies nausea, vomiting or fevers. Does have history of seizure disorder and previous stroke. Allergies and Home Medications Allergies Coded Allergies: Iodinated Contrast Media (Unverified Allergy, Unknown, 01/05/21) Penicillins (Unverified Allergy, Unknown, 01/05/21) codeine (Verified Allergy, Unknown, 12/11/18) Home Medications Hydrocodone/Acetaminophen 1 Each Tablet, 1 EACH PO Q4H Prescribed by: ROSANNA CABAN on 12/31/20 4430 Patient Home Medication List Home Medication List Reviewed: Yes Review of Systems Review of Systems Constitutional: No chills, No fever Respiratory: no symptoms reported Cardiovascular: no symptoms reported Gastrointestinal: No nausea, No vomiting Genitourinary: dysuria, frequency, pain : No Musculoskeletal: joint pain (History of fractures and contusions secondary to falls), muscle pain Skin: No change in color; lesions (Top of left hand) Psychiatric/Neurological: Pre-Existing Deficit, Weakness (Chronic) All Other Systemes Reviewed Negative Unless Noted: Yes Past Fqpaoxp-Gapbsz-Pqcmrr Hx Patient Social History Tobacco Use?: No Substance use?: No Alcohol Use?: No Seasonal Allergies Seasonal Allergies: No Past Medical History Surgery/Hospitalization HX: L shoulder surgery Surgeries: Yes (Gastric bypass, EGD, Colonoscopy, Hip surgery) Bowel Surgery, Tonsillectomy Respiratory: No Cardiac: Yes Aneurysm, High Cholesterol Neurological: 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, 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 oz. [id number]; 17.00 BMI Method:Stated General Appearance: no apparent distress, thin Cardiovascular: regular rate, rhythm, no murmur Respiratory: lungs clear, normal breath sounds Gastrointestinal: soft; No guarding, No rebound; tenderness (Mild suprapubic) Back: normal inspection, no CVA tenderness, no vertebral tenderness Neurologic/Psychiatric: alert, normal mood/affect, motor weakness (Chronic secondary to stroke) Skin: warm/dry, other (2 x 2 centimeter lesion to the top of the left hand that she is concerned about. It seems to be healing well but she does admit to picking. We will cover with light antibiotic ointment and Band-Aid to protect wound.) Procedures/Interventions Patient Education: Explained Benefits, Explained Risks, Pt. Ack. Understanding Breath Sounds per Auscultation: Clear Heart Sounds per Auscultation: Regular Airway Exam: Mouth opens >2 fingers, Visulation of Uvula Progress/Results/Core Measures Suspected Sepsis SIRS Temperature: Pulse: Respiratory Rate: Blood Pressure / Mean: Results/Orders Lab Results Laboratory Tests Test 01/13/21 08:05 Range/Units Urine Color YELLOW Urine Clarity SL CLOUDY Urine pH 5.0 5-9 Urine Specific [place] 1.020 1.016-1.022 Urine Protein NEGATIVE NEGATIVE Urine Glucose (UA) NEGATIVE NEGATIVE Urine Ketones 1+ H NEGATIVE Urine Nitrite POSITIVE H NEGATIVE Urine Bilirubin NEGATIVE NEGATIVE Urine Urobilinogen 1.0 < = 1.0 MG/DL Urine Leukocyte Esterase TRACE H NEGATIVE Urine RBC (Auto) NEGATIVE NEGATIVE Urine RBC RARE /HPF Urine WBC 5-10 H /HPF Urine Squamous Epithelial Cells RARE /HPF Urine Crystals NONE /LPF Urine Bacteria LARGE H /HPF Urine Casts PRESENT /LPF Urine Hyaline Casts RARE /LPF Urine Mucus SMALL H /LPF Urine Culture Indicated YES My Orders Orders - LILI DE OLIVEIRA MD Ua Culture If Indicated (01/13/21 07:57) Straight Cath For Spec.-Adult (01/13/21 07:57) Urine Culture (01/13/21 08:05) Ceftriaxone (Rocephin) (01/13/21 08:45) Lidocaine 1% Inj 20 Ml (Xylocaine 1% Inj (01/13/21 08:45) Vital Signs/I&O 01/13/21 07:45 Temp 35.9 Pulse 112 Resp 18 B/P (MAP) 107/64 (78) Pulse Ox 97 O2 Delivery Room Air Capillary Refill : Progress Note : Progress Note Seen and evaluated. We will get straight cath UA. Patient is worried about kidney stones. We will evaluate further after UA resulted. Monitor patient. 0838: UA does show urinary tract infection and is nitrite positive. We have culture from a few days ago that shows drug-resistant E. coli but sensitive to cephalosporins. Patient has penicillin allergy from a long time ago but does not have any history of cephalosporin allergy. Rocephin 1 g IM ordered. We will continue outpatient cefdinir for a few days. Discharged home with return precautions. Patient verbalized understanding of instructions and agreement with plan. Departure Impression Primary Impression: Urinary tract infection Qualified Codes: N30.00 - Acute cystitis without hematuria Disposition: HOME, SELF-CARE Condition: Stable Departure-Patient Inst. Decision time for Depature: 08:40 Referrals: ARNIE BERNARD MD (PCP/Family) Primary Care Physician Patient Instructions: Urinary Tract Infection, Adult (DC) Add. Discharge Instructions: Take medications as directed. Continue home medications as previously prescribed. Follow-up with your doctor this week for recheck and further evaluation as needed. Return for worse pain, weakness, fever, vomiting or other concerns as needed. Drink plenty of fluids and continue your normal diet. Scripts Cefdinir (Cefdinir) 300 Mg Capsule 300 MG PO BID for 5 Days, #10 CAP 0 Refills Prov: LILI DE OLIVEIRA MD 01/13/21 LILI DE OLIVEIRA MD Jan 13, 2021 08:04
[2021-01-13 08:14] LABS: BILIRUBIN,URINE NEGATIVE (NEGATIVE); CLARITY,URINE SL CLOUDY; COLOR,URINE YELLOW; GLUCOSE, URINE (UA) NEGATIVE (NEGATIVE); KETONES,URINE 1+ (NEGATIVE); LEUKOCYTE ESTERASE ,URINE TRACE (NEGATIVE); NITRITE,URINE POSITIVE (NEGATIVE); PROTEIN,URINE NEGATIVE (NEGATIVE)
[2021-01-13 08:23] LABS: BACTERIA,URINE LARGE /HPF; RBC,URINE RARE /HPF
[2021-01-13 08:24] LABS: HYALINE CASTS, URINE RARE /LPF; SQUAMOUS EPITHELIAL CELL,UR RARE /HPF
[2021-01-13] MEDS ORDERED: CEFD300C3 PO (08:41)
[2021-01-13] MEDS ORDERED: LIDOCAINE 1% INJ 20 ML 20 ML VIAL INJ ONE (08:45)
[2021-01-13] MEDS ORDERED: cefTRIAXone 1,000 MG VIAL IM ONE (08:45)
[2021-01-13 08:48] VITALS: BP 112/74
--- OUTSIDE RECORDS SUMMARY | 2021-01-16 03:59 | XMS REPORT | Clinical Summary ---
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
--- OUTSIDE RECORDS SUMMARY | 2021-01-16 03:59 | XMS REPORT | Clinical Summary ---
Author Author [facility] Organization [facility] Address Unknown Phone Unavailable Care Team Providers Care Coding Analyst Name Role Phone Arjun Stewart MD PCP Source Comments Some departments are not documenting in the electronic medical record. If you d o not see the information that you expected, contact Release of Information in [facility] Health Information Management department at [phone] for further assistan ce in locating additional records.[facility] Allergies Not on File Medications Not on file Active Problems Not on file Social History Date Tobacco Use Types Packs/Day Years Used Never Assessed Sex Assigned at Date Recorded Not on file Last Filed Vital Signs Not on file Plan of Treatment Health Maintenance Due Date Last Done Comments HIV SCREENING 02/09/1976 DTAP/TDAP VACCINES (1 - 1979 Tdap) HEPATITIS C SCREENING 1979 PHYSICAL (COMPREHENSIVE) 1979 EXAM CERVICAL CANCER SCREENING 1982 BREAST CANCER SCREENING 2001 COLORECTAL CANCER 2011 SCREENING SHINGLES RECOMBINANT 2011 VACCINE (1 of 2) INFLUENZA VACCINE 03/13/2021 Results Not on filefrom Last 3 Months
== END 2021-01-13 09:20 | disposition home or self-care (01) ==
LOC: EDUNIT# 07:38 → ER FS 07:40
DX: N39.0 Urinary tract infection, site not specified (principal); Z86.73 Personal history of transient ischemic attack (TIA), and cerebral infarction without residual deficits
CPT/HCPCS: 51701; 81000; 87077; 87088; 87186

== ENCOUNTER → 2021-01-23 | Outpatient (CLI) | payer MEDICARE, MEDICAID ==
[~2021-01-23] MED LIST changes: +CEFD300C3 PO
--- NOTE | 2021-01-23 09:52 | Diagnostic Imaging Report ---
INDICATION: Left shoulder pain, fall. TIME OF EXAM: 9:13 AM Correlation is made with prior exam from 12/31/2020. Generalized demineralization is noted. The fracture involving the proximal shaft of the left humerus is again noted. Fracture line remains clearly visible. No significant displacement or angulation is seen. There continues to be an inferior position of the humeral head in relation to the glenoid suggestive of inferior dislocation. Acromioclavicular line is normal. IMPRESSION: Continued inferiorly located humeral head in relation to the glenoid, similar to prior examination. The proximal humerus fracture is unchanged. Dictated by: Dictated on workstation # [id number]
== END ==
LOC: RAD FS 08:48
PROVIDERS: ATTEND Family Medicine
DX: S42.202A Unspecified fracture of upper end of left humerus, initial encounter for closed fracture (principal); W19.XXXA Unspecified fall, initial encounter
CPT/HCPCS: 73030

== ENCOUNTER → 2021-04-15 | Outpatient (CLI) | payer MEDICARE, MEDICAID ==
[2021-04-15 10:07] LABS: BILIRUBIN,URINE NEGATIVE (NEGATIVE); CLARITY,URINE TURBID; COLOR,URINE YELLOW; GLUCOSE, URINE (UA) NEGATIVE (NEGATIVE); KETONES,URINE NEGATIVE (NEGATIVE); LEUKOCYTE ESTERASE ,URINE 3+ (NEGATIVE); NITRITE,URINE NEGATIVE (NEGATIVE); PROTEIN,URINE TRACE (NEGATIVE)
[2021-04-15 10:17] LABS: BACTERIA,URINE LARGE /HPF; WBC,URINE TNTC /HPF
[2021-04-15 10:18] LABS: CALCIUM OXALATE CRYSTALS,UR MODERATE /LPF
== END ==
LOC: LAB FS 09:54
PROVIDERS: ATTEND Family Medicine
DX: R30.9 Painful micturition, unspecified (principal)
CPT/HCPCS: 81000; 87077; 87088; 87186

== ENCOUNTER → 2021-12-10 | Outpatient (CLI) | payer MEDICARE, MEDICAID ==
--- NOTE | 2021-12-10 14:41 | Diagnostic Imaging Report ---
INDICATION: Cold and discolored left foot. FINDINGS: Common femoral artery is patent and demonstrates normal velocity, normal waveform, and a high resistive triphasicity. The profunda is patent. There are normal velocities throughout the left superficial femoral artery and popliteal with maintenance of the triphasic waveform proximally. Distally, there is mild diminished resistance with biphasicity to the waveform. No focal acceleration or deceleration of the velocity, however. No findings of hemodynamically significant femoropopliteal stenosis or segmental occlusion. There is patency of the dorsalis pedis and posterior tibials at the ankle with diminished resistance to the biphasic waveform, nearly monophasic. IMPRESSION: There are some diffuse atherosclerotic changes present, but no focal stenosis or segmental occlusion is identified. Dictated by: Dictated on workstation # [id number]
== END ==
LOC: RAD FS 11:11
PROVIDERS: ATTEND Family Medicine
DX: I70.202 Unspecified atherosclerosis of native arteries of extremities, left leg (principal)
CPT/HCPCS: 93926

== ENCOUNTER → 2022-09-08 | Outpatient (CLI) | payer MEDICARE, MEDICAID ==
--- NOTE | 2022-09-08 16:44 | Diagnostic Imaging Report ---
INDICATION: Left foot pain. TECHNIQUE: 3 views of the left foot CORRELATION STUDY: None FINDINGS: There is rather marked bony demineralization involving all osseous structures left foot. The osseous structures of the foot are intact. Mildly prominent plantar calcaneal spur. Joint spaces are maintained. Alignment anatomic. Soft tissues appearing unremarkable. IMPRESSION: 1. Negative for acute findings of the foot. Rather pronounced bony demineralization. Dictated by: Dictated on workstation # [id number]
== END ==
LOC: RAD FS 10:01
PROVIDERS: ATTEND Nurse Practitioner
DX: M81.0 Age-related osteoporosis without current pathological fracture (principal)
CPT/HCPCS: 73630

== ENCOUNTER → 2022-10-01 | Outpatient (CLI) | payer MEDICARE, MEDICAID ==
[2022-10-01 19:00] LABS: BILIRUBIN,URINE NEGATIVE (NEGATIVE); COLOR,URINE YELLOW; GLUCOSE, URINE (UA) NEGATIVE (NEGATIVE); KETONES,URINE NEGATIVE (NEGATIVE); LEUKOCYTE ESTERASE ,URINE TRACE (NEGATIVE); NITRITE,URINE POSITIVE (NEGATIVE); PH,URINE 6.5 (5-9); PROTEIN,URINE NEGATIVE (NEGATIVE)
[2022-10-01 19:01] LABS: CLARITY,URINE CLOUDY
[2022-10-01 19:03] LABS: BACTERIA,URINE LARGE /HPF; WBC,URINE 25-50 /HPF
== END ==
LOC: GIR 18:51
PROVIDERS: ATTEND Family Medicine
DX: R30.0 Dysuria (principal)
CPT/HCPCS: 81000; 87077; 87088